=== PATIENT | male | born 1990 | race Caucasian/White ===

== ENCOUNTER 2024-03-29 10:29 | Emergency (ER) | payer OTHER, SELFPAY ==
[2024-03-29 10:42] VITALS: BP 145/63; PULSE 71; RESP 14; TEMP 36.6; O2SAT 100
--- NOTE | 2024-03-29 11:33 | ED.LOWEXIN ---
HPI - Extremity Injury (Lower) General Chief Complaint: Extremity Injury, Lower Stated Complaint: Left Knee Pain Time Seen by Provider: 03/29/24 11:33 Source: patient, RN notes reviewed and old records reviewed Mode of arrival: ambulatory Limitations: no limitations History of Present Illness HPI Narrative: patient with medical history significant for psoriatic arthritis presents with complaints of left knee pain and swelling. He reports the symptoms have been present for couple of days. He is taking all regular medications, states that pain is worse with weight-bearing. He denies any injury or trauma. Voices no other concerns or complaints at this time Related Data Home Medications Medication Instructions Recorded Confirmed secukinumab 150 mg/mL subcutaneous 150 mg subcut DIRECTED 03/29/24 03/29/24 pen injector (Cosentyx Pen 300 mg/2 Pens () Allergies Allergy/AdvReac Type Severity Reaction Status Date / Time No Known Allergies Allergy Verified 03/29/24 10:50 Review of Systems Review of Systems: All systems reviewed & are unremarkable except as noted in HPI and below Constitutional: Constitutional: Reports no additional constitutional complaints ENT: Reports system reviewed and no additional complaints, except as documented Cardiovascular: Cardiovascular: Reports no additional cardiovascular complaints Respiratory: Respiratory: Reports no additional respiratory complaints Gastrointestinal: Gastrointestinal: Reports no additional gastrointestinal complaints Musculoskeletal: Musculoskeletal: Reports as per HPI and Reports arthralgias (left knee) Allergic/Immunologic: Allergic/Immunologic: Reports as per HPI [facility] Comments At the time of my signature, I reviewed and agree with the nursing past medical, surgical, social, and family history. There is no relevant family history pertinent to the patient complaint. Exam Const: General: cooperative, no acute distress, alert and awake Orientation/consciousness: oriented to person, oriented to place and oriented to time HENMT: Head: normal to inspection Eyes: General: appearance normal, both eyes and all related structures Resp: Effort & Inspection: normal respiratory effort and able to speak in complete sentences Auscultation: clear to auscultation bilaterally, no crackles, no rales, no rhonchi and no wheezes Cardio: Palpation: normal PMI Rate: regular rate Rhythm: regular rhythm Heart sounds: S1 normal heart sound present and S2 normal heart sound present Skin: General skin exam: normal color Neuro: General: oriented to person, oriented to place and oriented to time Cranial nerves: Yes CN's II-XII intact bilaterally Extrem: Left lower extremity: full ROM Knee images: 1. mild swelling, no redness or warmth Psych: Appearance: grossly normal Thought process: Normal thought process present Insight: Good insight present (Psych) Judgement: Good judgement present (Psych) Course Course Level of Care: Express Care Visit Vital Signs Vital signs: Vital Signs Temperature 97.8 F 03/29/24 10:42 Pulse Rate 71 03/29/24 10:42 Respiratory Rate 14 03/29/24 10:42 Blood Pressure 145/63 H 03/29/24 10:42 Pulse Oximetry 100 03/29/24 10:42 Oxygen Delivery Room Air 03/29/24 10:42 Temperature 97.8 F 03/29/24 10:42 Pulse Rate 71 03/29/24 10:42 Respiratory Rate 14 03/29/24 10:42 Blood Pressure 145/63 H 03/29/24 10:42 Pulse Oximetry 100 03/29/24 10:42 Oxygen Delivery Room Air 03/29/24 10:42 Reviewed MDM - Extremity Injury (Lower) MDM Narrative Medical decision making narrative: patient with psoriatic arthritis, medication compliant. Left knee effusion, no excessive redness or warmth. Prednisone burst in addition to regular medications. Follow up with primary care provider 1-2 weeks, blood pressure is elevated. Emergency department for new or worsening symptoms Differential Diagnosis Differenti
== END 2024-03-29 11:50 | disposition home or self-care (01) ==
PROVIDERS: Emergency Provider Nurse Practitioner Family; PCP Family Medicine
DX: M25.462 Effusion, left knee (principal); L40.50 Arthropathic psoriasis, unspecified
CPT/HCPCS: 99213; G0463

== ENCOUNTER 2024-04-10 14:27 | Outpatient (CLI) | payer OTHER, SELFPAY ==
--- NOTE | ~2024-04-10 | MR_ITS ---
EXAMINATION: MR knee LT wo con DATE: 04/10/2024 15:07 INDICATION: Chronic pain of left knee TECHNIQUE: Magnetic resonance imaging (MRI) of the left knee was performed without intravenous contra st. Sequences included axial PD-weighted FS FSE, coronal PD-weighted FSE and PD-weighted FS FSE, sagi ttal PD-weighted FSE, and sagittal T2-weighted FS FSE. COMPARISON: None. FINDINGS: Medial compartment: 11 mm full-thickness cartilage defect on the MFC. Severe diffuse thinning of cartilage. Moderate dege nerative meniscal volume loss. Moderate osteophytosis. Moderate-severe joint space narrowing. Lateral compartment: 4 mm full-thickness cartilage defect on the LFC. Moderate diffuse cartilage thinning. Mild degenerati ve meniscal volume loss and mild extrusion. Moderate osteophytosis. Patellofemoral compartment: Bipartite patella with prominent marrow edema along both sides of the unfused physis. Mild diffuse th inning of cartilage. Intact retinacula. Mild osteophytosis. Bandlike thickening of the medial plica/r etinacula. Ligaments and tendons: The ACL, PCL, MCL, and LCL are intact. Remaining flexor and extensor tendons are intact. Fluid: Small volume joint fluid with synovial inflammatory change. Osseous/other: No suspicious focal or diffuse marrow signal. Degenerative subchondral cyst in the medial plateau. 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 Correlate for anterior knee pain. Small joint effusion with synovitis. Reviewed, dictated and finalized at location K. 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 Correlate for anterior knee pain. Small joint effusion with synovitis.
== END 2024-04-10 14:28 ==
PROVIDERS: PCP Orthopaedic Surgery; Visit Provider Orthopaedic Surgery
DX: M17.12 Unilateral primary osteoarthritis, left knee (principal); M25.462 Effusion, left knee; M65.862 Other synovitis and tenosynovitis, left lower leg; G89.29 Other chronic pain
CPT/HCPCS: 73721